=== PATIENT | female | born 1960 | race Caucasian/White ===

== ENCOUNTER 2019-01-08 11:40 | Emergency (ER) | payer SELFPAY ==
[~2019-01-08] VITALS: Ht 167.6 cm; Wt 52.0 kg
[2019-01-08] MEDS ORDERED: ACETAMINOPHEN 325MG TABLET PO ONE (14:30)
[2019-01-08 15:29] VITALS: BP 129/78
== END 2019-01-08 15:52 | disposition home or self-care (01) ==
LOC: ER 11:40
DX: S42.322D Displaced transverse fracture of shaft of humerus, left arm, subsequent encounter for fracture with routine healing (principal); M25.512 Pain in left shoulder; M79.632 Pain in left forearm; W19.XXXD Unspecified fall, subsequent encounter
CPT/HCPCS: 73060; 73090; 99283

== ENCOUNTER 2019-01-09 02:07 | Emergency (ER) | payer SELFPAY ==
[~2019-01-09] VITALS: Ht 167.6 cm; Wt 44.5 kg
[2019-01-09 06:13] VITALS: BP 128/80
== END 2019-01-09 06:14 | disposition home or self-care (01) ==
LOC: ER 02:38
DX: Z76.0 Encounter for issue of repeat prescription (principal); F41.9 Anxiety disorder, unspecified; F31.9 Bipolar disorder, unspecified; F20.9 Schizophrenia, unspecified
CPT/HCPCS: 99283

== ENCOUNTER 2019-01-10 16:34 | Emergency (ER) | payer SELFPAY | END 2019-01-10 17:41 | disposition left against medical advice (07) | LOC: ER 17:19 | DX: Z53.21 Procedure and treatment not carried out due to patient leaving prior to being seen by health care provider (principal) ==

== ENCOUNTER 2019-01-25 12:33 | Emergency (ER) | payer SELFPAY ==
[~2019-01-25] VITALS: Ht 160 cm; Wt 48.0 kg
[2019-01-25] MEDS ORDERED: TRAMADOL 50MG TABLET PO ONE (13:45)
[2019-01-25 15:30] VITALS: BP 104/62
== END 2019-01-25 15:43 | disposition home or self-care (01) ==
LOC: ER 12:33
DX: S42.302D Unspecified fracture of shaft of humerus, left arm, subsequent encounter for fracture with routine healing (principal); X58.XXXD Exposure to other specified factors, subsequent encounter
CPT/HCPCS: 99283

== ENCOUNTER 2019-01-30 00:13 | Emergency (ER) | payer SELFPAY ==
[~2019-01-30] VITALS: Ht 167.6 cm; Wt 53.0 kg
[2019-01-30 00:25] VITALS: BP 103/56
[2019-01-30] MEDS ORDERED: IBUPROFEN 600MG TABLET PO ONE (04:00)
== END 2019-01-30 05:10 | disposition home or self-care (01) ==
LOC: ER 00:13
DX: G89.4 Chronic pain syndrome (principal); M79.642 Pain in left hand; F31.9 Bipolar disorder, unspecified; F20.9 Schizophrenia, unspecified; Z59.0 Homelessness
CPT/HCPCS: 99281

== ENCOUNTER 2019-01-30 10:23 | Emergency (ER) | payer SELFPAY ==
[~2019-01-30] VITALS: Ht 167.6 cm; Wt 72.0 kg
[2019-01-30 10:52] VITALS: BP 135/75
== END 2019-01-30 15:16 | disposition left against medical advice (07) ==
LOC: ER 10:23
DX: M79.603 Pain in arm, unspecified (principal); Z53.21 Procedure and treatment not carried out due to patient leaving prior to being seen by health care provider

== ENCOUNTER 2019-02-28 17:31 | Emergency (ER) | payer SELFPAY ==
[~2019-02-28] VITALS: Ht 167.6 cm; Wt 54.0 kg
[2019-02-28 17:38] VITALS: BP 100/62
[2019-02-28] MEDS ORDERED: ACETAMINOPHEN 325MG TABLET PO ONE (18:30)
== END 2019-02-28 18:59 | disposition left against medical advice (07) ==
LOC: ER 17:31
DX: S42.322A Displaced transverse fracture of shaft of humerus, left arm, initial encounter for closed fracture (principal); F20.9 Schizophrenia, unspecified; F31.9 Bipolar disorder, unspecified; X58.XXXA Exposure to other specified factors, initial encounter; Y93.89 Activity, other specified; Y92.89 Other specified places as the place of occurrence of the external cause; Y99.8 Other external cause status
CPT/HCPCS: 99283

== ENCOUNTER 2019-03-21 03:09 | Emergency (ER) | payer SELFPAY ==
[~2019-03-21] VITALS: Ht 157.5 cm; Wt 53.0 kg
[2019-03-21] MEDS ORDERED: ACETAMINOPHEN 325MG TABLET PO ONE (04:15)
[2019-03-21] MEDS ORDERED: HYDROCODONE/ACETAMINOPHEN 5/325MG TABLET PO ONE (06:15)
[2019-03-21 06:46] VITALS: BP 119/77
== END 2019-03-21 08:08 | disposition home or self-care (01) ==
LOC: ER 03:09
DX: S42.492 Other displaced fracture of lower end of left humerus (principal); X58.XXXD Exposure to other specified factors, subsequent encounter
CPT/HCPCS: 29105; 73060; 99283; A4217; Z7610; A4565

== ENCOUNTER 2019-03-21 15:39 | Emergency (ER) | payer SELFPAY ==
[~2019-03-21] VITALS: Ht 162.6 cm; Wt 54.0 kg
[2019-03-21 18:11] VITALS: BP 100/60
== END 2019-03-21 20:04 | disposition left against medical advice (07) ==
LOC: ER 15:39
DX: Z53.21 Procedure and treatment not carried out due to patient leaving prior to being seen by health care provider (principal)

== ENCOUNTER 2019-03-27 20:03 | Emergency (ER) | payer SELFPAY ==
[~2019-03-27] VITALS: Ht 162.6 cm; Wt 54.0 kg
[2019-03-27 20:12] VITALS: BP 122/80
[2019-03-28] MEDS ORDERED: IBUPROFEN 600MG TABLET PO STA (00:31)
== END 2019-03-28 02:03 | disposition left against medical advice (07) ==
LOC: ER 20:03
DX: S42.492A Other displaced fracture of lower end of left humerus, initial encounter for closed fracture (principal); X58.XXXA Exposure to other specified factors, initial encounter; Y93.9 Activity, unspecified; Y92.9 Unspecified place or not applicable
CPT/HCPCS: 99283